=== PATIENT | female | born 1955 | race African-American/Black ===

== ENCOUNTER 2017-10-20 09:00 | Emergency (ER) | payer MEDICAID ==
[~2017-10-20] VITALS: Ht 165.1 cm; Wt 59.0 kg
[~2017-10-20 09:00] MED LIST: ASPI-1159 PO; LISI10TA5 PO; Metronidazole PO; Nifedipine PO
[2017-10-20 09:02] VITALS: BP 147/86
== END 2017-10-20 11:20 | disposition left against medical advice (07) ==
LOC: ER 09:08
DX: M79.89 Other specified soft tissue disorders (principal); M79.601 Pain in right arm; Z53.21 Procedure and treatment not carried out due to patient leaving prior to being seen by health care provider

== ENCOUNTER 2017-10-22 05:31 | Emergency (ER) | payer MEDICAID ==
[~2017-10-22] VITALS: Ht 160 cm; Wt 57.0 kg
[2017-10-22] MEDS ORDERED: IBUPROFEN 800MG TABLET PO ONE (08:45)
[2017-10-22 09:03] LABS: BASOPHILS % 1.1 % (0.0-2.0); EOSINOPHILS % 1.3 % (0.0-5.0); HEMATOCRIT. 38.2 % (36.0-48.0); HEMOGLOBIN. 12.8 g/dL (12.0-16.0); LYMPHOCYTES % 30.9 % (20.0-50.0); MEAN CORPUSCULAR HEMOGLOBIN 30.8 pg (28.0-32.0); MEAN CORPUSCULAR VOLUME 92.1 fL (81.0-99.0); MEAN PLATELET VOLUME 9.4 fl (7.4-10.4); MONOCYTES % 11.1 % (2.0-8.0); NEUTROPHILS % 55.6 % (40.0-76.0); PLATELET 254 x1000/uL (130-400); RED BLOOD CELL COUNT 4.15 mill/uL (4.2-5.4); RED CELL DISTRIBUTION WIDTH 13.8 % (11.6-14.6)
[2017-10-22 09:11] LABS: CHLORIDE 105 mEq/L (98-107)
[2017-10-22 11:20] VITALS: BP 165/97
== END 2017-10-22 11:21 | disposition home or self-care (01) ==
LOC: ER 05:31
DX: S40.011A Contusion of right shoulder, initial encounter (principal); I10 Essential (primary) hypertension; F17.200 Nicotine dependence, unspecified, uncomplicated; F12.10 Cannabis abuse, uncomplicated; Z79.82 Long term (current) use of aspirin; Z98.890 Other specified postprocedural states; W18.39XA Other fall on same level, initial encounter; Y93.89 Activity, other specified; Y92.89 Other specified places as the place of occurrence of the external cause; Y99.8 Other external cause status
CPT/HCPCS: 36415; 73030; 80048; 85025; 93005; 99285; Z7610; A4565

== ENCOUNTER 2018-05-28 06:46 | Emergency (ER) | payer MEDICAID ==
[~2018-05-28] VITALS: Ht 162.6 cm; Wt 64.0 kg
[2018-05-28] MEDS ORDERED: NIFEDIPINE XL 30MG TAB PO ONE (07:00)
[2018-05-28] MEDS ORDERED: LISINOPRIL 10MG TABLET PO ONE (07:00)
[2018-05-28 07:07] VITALS: BP 193/115
== END 2018-05-28 07:33 | disposition left against medical advice (07) ==
LOC: ER 06:46
DX: I16.0 Hypertensive urgency (principal)
CPT/HCPCS: 99283

== ENCOUNTER 2019-07-02 19:42 | Emergency (ER) | payer MEDICAID ==
[~2019-07-02] VITALS: Ht 165.1 cm; Wt 59.0 kg
[~2019-07-02 19:42] MED LIST changes: -ASPI-1159 PO; +ASPI-1393 PO
[2019-07-02] MEDS ORDERED: PREDNISONE 20MG TABLET PO ONE (22:45)
[2019-07-02] MEDS ORDERED: DIPHENHYDRAMINE 25MG CAPSULE PO ONE (22:45)
[2019-07-02] MEDS ORDERED: LORATADINE 10MG TABLET PO SCH (22:45)
[2019-07-02] MEDS ORDERED: IBUPROFEN 600MG TABLET PO ONE (23:00)
[2019-07-02 23:11] VITALS: BP 110/69
== END 2019-07-02 23:11 | disposition home or self-care (01) ==
LOC: ER 19:42
DX: G89.29 Other chronic pain (principal); M79.661 Pain in right lower leg; L50.9 Urticaria, unspecified; I10 Essential (primary) hypertension; Z79.899 Other long term (current) drug therapy
CPT/HCPCS: 99284; J7512; Q0163

== ENCOUNTER 2019-12-28 07:13 | Emergency (ER) | payer MEDICAID ==
[~2019-12-28] VITALS: Ht 165.1 cm; Wt 59.0 kg
[~2019-12-28 07:13] MED LIST changes: -ASPI-1393 PO; +ASPI-1497 PO
[2019-12-28] MEDS ORDERED: METHYLPREDNISOLONE SOD SUCC 125 MG/2 ML VIAL IV ONE (08:00)
[2019-12-28] MEDS ORDERED: DIPHENHYDRAMINE 50MG/ML VIAL IV ONE (08:00)
[2019-12-28] MEDS ORDERED: FAMOTIDINE 20MG/2ML VIAL IV ONE (08:00)
[2019-12-28 09:32] VITALS: BP 148/88
== END 2019-12-28 09:35 | disposition home or self-care (01) ==
LOC: ER 07:13
DX: L50.0 Allergic urticaria (principal); I10 Essential (primary) hypertension; R63.0 Anorexia; Z68.21 Body mass index [BMI] 21.0-21.9, adult
CPT/HCPCS: 96374; 96375; 99284; J1200; J2930; J3490

== ENCOUNTER 2020-01-24 10:59 | Emergency (ER) | payer MEDICAID ==
[~2020-01-24] VITALS: Ht 160 cm; Wt 68.0 kg
[2020-01-24 11:19] VITALS: BP 149/89
[2020-01-24] MEDS ORDERED: PREDNISONE 20MG TABLET PO STA (12:19)
[2020-01-24] MEDS ORDERED: FAMOTIDINE 20MG TABLET PO ONE (12:30)
[2020-01-24] MEDS ORDERED: DIPHENHYDRAMINE 25MG CAPSULE PO ONE ×2 (12:30)
[2020-01-24] MEDS ORDERED: PREDNISONE 20MG TABLET PO ONE (12:30)
[2020-01-24] MEDS ORDERED: ACETAMINOPHEN 325MG TABLET PO ONE (12:30)
== END 2020-01-24 14:38 | disposition left against medical advice (07) ==
LOC: ER 10:59
DX: T78.40XA Allergy, unspecified, initial encounter (principal); X58.XXXA Exposure to other specified factors, initial encounter
CPT/HCPCS: 99284; J7512; Q0163

== ENCOUNTER 2020-01-26 22:46 | Emergency (ER) | payer MEDICAID ==
[~2020-01-26] VITALS: Ht 165.1 cm; Wt 66.0 kg
[2020-01-26 23:00] VITALS: BP 126/97
[2020-01-26] MEDS ORDERED: DEXAMETHASONE 4MG TABLET PO ONE (23:30)
[2020-01-26] MEDS ORDERED: DIPHENHYDRAMINE 25MG CAPSULE PO ONE (23:45)
[2020-01-26] MEDS ORDERED: FAMOTIDINE 20MG TABLET PO ONE (23:45)
[2020-01-26] MEDS ORDERED: METHYLPREDNISOLONE SOD SUCC 125 MG/2 ML VIAL IM ONE (23:45)
== END 2020-01-27 | disposition home or self-care (01) ==
LOC: ER 22:46
DX: L50.0 Allergic urticaria (principal); I10 Essential (primary) hypertension
CPT/HCPCS: 96372; 99283; J2930; Q0163